=== PATIENT | male | born 1955 | race Caucasian/White ===

== ENCOUNTER 2017-02-10 13:52 | Emergency (ER) | payer OTHER ==
[~2017-02-10] VITALS: Ht 177.8 cm; Wt 55.3 kg
--- NOTE | 2017-02-10 14:05 | Emergency Room Report ---
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 Clinical Suspician of Infection? Mental Status: Sepsis Risk: Have you (or family members/close friends) recently traveled outside the [place]? If Yes, where/when: Have you had exposure to infectious disease within the past month? TB? Other? Specify: Patient had brief syncopal episode an hour ago while sitting at a bar; apparently underwent phlebotomy per his INSPECTOR GOVERNMENT PROPERTY this morning. On EMS arrival, also had near syncope with SBP in the 60's; given IVF aggressively x one liter prior to arrival, with recheck SBP in the low 120's. He has no cephalgia, no chest pain. Noted to have nonspecific ST changes on EKG per EMS. FSBS 118. Had some v/ d today. 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 ) Psychiatric/Neurological see HPI Physical Exam Vital Signs Vital Signs Date Time Temp Pulse Resp B/P Pulse O2 O2 Flow FiO2 Ox Delivery Rate 02/10 1508 92 18 118/84 97 02/10 1355 98.0 90 18 123/80 95 General Appearance normal appearance, WD/WN, no apparent distress Eye Exam - bilateral eye normal exam, bilateral eye PERRL, bilateral eye EOMI Neck normal inspection, non-tender, supple, full range of motion Respiratory Status Yes: trachea midline, chest symmetrical, non tender chest. No: respiratory distress, tender on palpation, use of accessory muscles, pain on inspiration, pain on expiration, productive cough, non productive cough. Lung Sounds bilateral: normal breath sounds, lungs clear. 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 No Results/Orders Laboratory Tests 02/10/17 1409: Sodium 129 L, Potassium 4.2, Chloride 97 L, Carbon Dioxide 23, BUN 13, Creatinine 1.0, Estimated Creat Clear 60, Estimated GFR (MDRD) 76, Glucose 107 H, Calcium 8.7, Total Bilirubin 1.0, AST 45 H, ALT 50, Alkaline Phosphatase 78, Creatine Kinase 65, CK-MB (CK-2) Rel Index 2.3, CK and CKMB Interp 1.5, Troponin I < 0.02, Total Protein 6.6, Albumin 3.7, Globulin 2.9, Albumin/Globulin Ratio 1.3, WBC 9.2, RBC 4.34 L, Hgb 14.3, Hct 43.0, MCV 98.9 H, RDW 13.2, Plt Count 224, MPV 7.1 L, Gran % 80.5 H, Gran # 7.4, Lymphocytes % 12.9, Monocytes % 5.5 , Eosinophils % 0.8, Basophils % 0.2, Lymphocytes # 1.2, Monocytes # 0.5, Eosinophils # 0.1, Basophils # 0.0, PUBS MCHC 33.3, MCH 32.9 H, Alcohols 35 Current Medication Orders Sig/Dariel Start time Last Medication Dose Route Stop Time Status Admin Folic Acid 1 MG ONCE ONE 02/10 1600 AC PO 02/10 1601 Multivitamins 1 EACH ONCE ONE 02/10 1600 AC PO 02/10 1601 Thiamine HCl 100 MG ONCE ONE 02/10 1600 AC PO 02/10 1601 Folic Acid 1 MG ONCE ONE 02/10 1445 DC PO 02/10 1446 Multivitamins 10 ML .Q6H42M 02/10 144 DC Magnesium Sulfate 2 GM IV 02/106 Thiamine HCl 100 MG Lactated Ringer's 1,000 ML Miscellaneous 1 UNIT ONCE ONE 02/10 1430 DC Medication XX 02/10 1431 Sodium Chloride 10 ML PRN PRN 02/10 1415 AC IV 02/11 140 Orders Procedure Date/time Status DIET-NOTHING BY MOUTH 02/10 D Active ECHO ADULT 02/10 1415 Active ALCOHOL 02/10 140 Complete ELECTROCARDIOGRAM REQUEST 02/[address] HEAD REQ 02/10 1403 Complete CHEST-PORTABLE 02/10 1403 Active IV SALINE LOCK 02/10 1403 Active CBC WITH AUTO DIFF 02/10 1403 Complete CARDIAC ENZYMES 02/10 1403 Complete CHEM 12 PROFILE 02/10 1403 Complete 12 LEAD EKG-BESSON (INITIAL) 02/10 UNK Active CM/EKG CM/EKG EKG rate, NSR, rhythm, no ectopy, normal QRS, non-spec. ST/Twave chgs, first degree AVB, has borderline ST changes inferiorly and laterally with EKG sent to cardiology for stat review and Dr. JAMES has evaluated it and recommends ECHO. XRAY/CT/US XRAY/CT/US XRAY chest XR interpretation by reviewed by me Xray Results normal/NAD, no infiltrates, reticular pattern; rotated CT head CT interpretation by reviewed by me (report reviewed) Time results known: 1453 CT Results normal/NAD Consult MD Physician Consult Time Called 1358 Reason Cardiology eval/care Comments ST changes noted on EKG per EMS as well as [facility] EKG; have paged cardiology train electronic technician and EKG also texted to cardiology. Departure Departure Time of Disposition 1551 Disposition DC Home or Self Care(routine) Clinical Impression Primary Impression: Syncope Qualifiers: Syncope type: vasovagal syncope Qualified Code: R55 - Syncope and collapse Secondary Impressions: Vomiting and diarrhea Condition STABLE Referrals Steffany Gomez MD (Family) Patient Instructions Orthostatic Hypotension Additional Instructions Encourage fluids, see Dr. Gomez for follow up in one to two days; recommend daily multivitamin and seizure precautions around bed. Blood pressure was low today per EMS so stand up slowly and carefully to avoid further episodes. Discharge Counseling Counseled pt/family regarding diagnosis, test results, home care, follow up needs Prescriptions Current Visit Scripts Ondansetron (Zofran 4MG Odt) 4 MG PO Q6HP PRN NAUSEA AND VOMITING #10 ODT ED Critical Care Critical Care No at [id number]
--- NOTE | 2017-02-10 14:05 | Emergency Room Report ---
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 Clinical Suspician of Infection? Mental Status: Sepsis Risk: Have you (or family members/close friends) recently traveled outside the [place]? If Yes, where/when: Have you had exposure to infectious disease within the past month? TB? Other? Specify: Patient had brief syncopal episode an hour ago while sitting at a bar; apparently underwent phlebotomy per his RECREATION PROFESSOR this morning. On EMS arrival, also had near syncope with SBP in the 60's; given IVF aggressively x one liter prior to arrival, with recheck SBP in the low 120's. He has no cephalgia, no chest pain. Noted to have nonspecific ST changes on EKG per EMS. FSBS 118. Had some v/ d today. 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 ) Psychiatric/Neurological see HPI Physical Exam Vital Signs Vital Signs Date Time Temp Pulse Resp B/P Pulse O2 O2 Flow FiO2 Ox Delivery Rate 02/10 1508 92 18 118/84 97 02/10 1355 98.0 90 18 123/80 95 General Appearance normal appearance, WD/WN, no apparent distress Eye Exam - bilateral eye normal exam, bilateral eye PERRL, bilateral eye EOMI Neck normal inspection, non-tender, supple, full range of motion Respiratory Status Yes: trachea midline, chest symmetrical, non tender chest. No: respiratory distress, tender on palpation, use of accessory muscles, pain on inspiration, pain on expiration, productive cough, non productive cough. Lung Sounds bilateral: normal breath sounds, lungs clear. Cardiovascular normal exam, regular rate/rhythm, no peripheral edema, no gallop, no JVD, no murmur, no rub, normal peripheral pulses Gastrointestinal normal bowel sounds, normal exam, non tender, soft, no organomegaly, no pulsatile mass, no guarding, no rebound Extremities non-tender, normal range of motion, normal inspection, normal capillary refill Strength 4 Upper Ext (L), 4 Upper Ext (R), 4 Lower Ext (L), 4 Lower Ext (R) Neurologic alert, pocket closer II-XII nml as tested, normal exam, no motor/sensory deficits, oriented x 3 (tremulous; clear speech) Glascow Coma Scale Glascow Coma Scale Response Value EYE response: 4 Spontaneously 4 MOTOR response: 6 OBEYS 6 VERBAL response: 5 Oriented & Converses 5 Total 15 Mental status normal mood/affect Skin intact, normal color Medical Decision Making LABS/Meds/Orders Pt receiving controlled substance in ED? No Results/Orders Laboratory Tests 02/10/17 1409: Sodium 129 L, Potassium 4.2, Chloride 97 L, Carbon Dioxide 23, BUN 13, Creatinine 1.0, Estimated Creat Clear 60, Estimated GFR (MDRD) 76, Glucose 107 H, Calcium 8.7, Total Bilirubin 1.0, AST 45 H, ALT 50, Alkaline Phosphatase 78, Creatine Kinase 65, CK-MB (CK-2) Rel Index 2.3, CK and CKMB Interp 1.5, Troponin I < 0.02, Total Protein 6.6, Albumin 3.7, Globulin 2.9, Albumin/Globulin Ratio 1.3, WBC 9.2, RBC 4.34 L, Hgb 14.3, Hct 43.0, MCV 98.9 H, RDW 13.2, Plt Count 224, MPV 7.1 L, Gran % 80.5 H, Gran # 7.4, Lymphocytes % 12.9, Monocytes % 5.5 , Eosinophils % 0.8, Basophils % 0.2, Lymphocytes # 1.2, Monocytes # 0.5, Eosinophils # 0.1, Basophils # 0.0, PUBS MCHC 33.3, MCH 32.9 H, Alcohols 35 Current Medication Orders Sig/Dariel Start time Last Medication Dose Route Stop Time Status Admin Folic Acid 1 MG ONCE ONE 02/10 1600 AC PO 02/10 1601 Multivitamins 1 EACH ONCE ONE 02/10 1600 AC PO 02/10 1601 Thiamine HCl 100 MG ONCE ONE 02/10 1600 AC PO 02/10 1601 Folic Acid 1 MG ONCE ONE 02/10 1445 DC PO 02/10 1446 Multivitamins 10 ML .Q6H42M 02/10 144 DC Magnesium Sulfate 2 GM IV 02/106 Thiamine HCl 100 MG Lactated Ringer's 1,000 ML Miscellaneous 1 UNIT ONCE ONE 02/10 1430 DC Medication XX 02/10 1431 Sodium Chloride 10 ML PRN PRN 02/10 1415 AC IV 02/11 140 Orders Procedure Date/time Status DIET-NOTHING BY MOUTH 02/10 D Active ECHO ADULT 02/10 1415 Active ALCOHOL 02/10 140 Complete ELECTROCARDIOGRAM REQUEST 02/[address] HEAD REQ 02/10 1403 Complete CHEST-PORTABLE 02/10 1403 Active IV SALINE LOCK 02/10 1403 Active CBC WITH AUTO DIFF 02/10 1403 Complete CARDIAC ENZYMES 02/10 1403 Complete CHEM 12 PROFILE 02/10 1403 Complete 12 LEAD EKG-BESSON (INITIAL) 02/10 UNK Active CM/EKG CM/EKG EKG rate, NSR, rhythm, no ectopy, normal QRS, non-spec. ST/Twave chgs, first degree AVB, has borderline ST changes inferiorly and laterally with EKG sent to cardiology for stat review and Dr. JAMES has evaluated it and recommends ECHO. XRAY/CT/US XRAY/CT/US XRAY chest XR interpretation by reviewed by me Xray Results normal/NAD, no infiltrates, reticular pattern; rotated CT head CT interpretation by reviewed by me (report reviewed) Time results known: 1453 CT Results normal/NAD Consult MD Physician Consult Time Called 1358 Reason Cardiology eval/care Comments ST changes noted on EKG per EMS as well as [facility] EKG; have paged cardiology community education coordinator and EKG also texted to cardiology. Departure Departure Time of Disposition 1551 Disposition DC Home or Self Care(routine) Clinical Impression Primary Impression: Syncope Qualifiers: Syncope type: vasovagal syncope Qualified Code: R55 - Syncope and collapse Secondary Impressions: Vomiting and diarrhea Condition STABLE Referrals Steffany Gomez MD (Family) Patient Instructions Orthostatic Hypotension Additional Instructions Encourage fluids, see Dr. Gomez for follow up in one to two days; recommend daily multivitamin and seizure precautions around bed. Blood pressure was low today per EMS so stand up slowly and carefully to avoid further episodes. Discharge Counseling Counseled pt/family regarding diagnosis, test results, home care, follow up needs Prescriptions Current Visit Scripts Ondansetron (Zofran 4MG Odt) 4 MG PO Q6HP PRN NAUSEA AND VOMITING #10 ODT ED Critical Care Critical Care No at [id number]
[2017-02-10 14:16] LABS: HEMOGLOBIN 14.3 g/dL (14.1-18.0); LYMPH # 1.2 K/mm3 (0.7-4.5); LYMPH % 12.9 % (10-50)
--- OUTSIDE RECORDS SUMMARY | 2017-02-10 14:22 | External Medical Summary Rpt | CCD ---
Demographics Preferred Language Armenian Marital Status Unknown Taoism Affiliation Unknown Race Unknown Ethnic Group Unknown Author Author [facility]OL[facility] Address Unknown Phone Immunization No patient found.
--- OUTSIDE RECORDS SUMMARY | 2017-02-10 14:22 | External Medical Summary Rpt | CCD ---
Author Author [employer] Organization [employer] Address Unknown Phone Unavailable Purpose Continuity of Care Document - through 2016
--- OUTSIDE RECORDS SUMMARY | 2017-02-10 14:22 | External Medical Summary Rpt ---
Author Author [facility]OLA Suarez, [employer] Organization [employer] Address Unknown Phone Unavailable
--- OUTSIDE RECORDS SUMMARY | 2017-02-10 14:22 | External Medical Summary Rpt | CCD ---
Demographics Preferred Language Mozambican Marital Status Unknown Adventist Affiliation Unknown Race Unknown Ethnic Group Unknown Author Author [facility]OLA Address Unknown Phone Immunization No patient found.
--- OUTSIDE RECORDS SUMMARY | 2017-02-10 14:22 | External Medical Summary Rpt | CCD ---
Author Author YOLA Address Unknown Phone [email or web address] Purpose Continuity of Care Document - through 2016
--- OUTSIDE RECORDS SUMMARY | 2017-02-10 14:22 | External Medical Summary Rpt | CCD ---
Author Author YOLA Address Unknown Phone [email or web address] Purpose Continuity of Care Document - through 2016
[2017-02-10 14:41] LABS: BUN 13 mg/dL (7-18)
--- NOTE | 2017-02-10 14:42 | RADIOLOGY REPORT PS360 ---
CT HEAD W/O CONTRAST HISTORY: NEAR SYNCOPE ORDERING PHYSICIAN: Yen Francisco MD PATIENT AGE: 61 years COMPARISON: None. FINDINGS: There is mild prominence of the ventricles and sulci consistent with volume loss. Low density changes are present in the periventricular region consistent with ischemic gliotic change from small vessel disease. No midline shift, mass effect, intracranial hemorrhage, or hydrocephalus is evident. No mastoid effusion. No sinus air-fluid level. No acute calvarial abnormality. IMPRESSION: No acute intracranial pathology
[2017-02-10 14:45] LABS: GFR (ESTIMATED) 76 ML/MIN (>60)
[2017-02-10] MEDS ORDERED: ZOFRAN ODT4 MG PO (15:54)
[2017-02-10 16:01] VITALS: BP 118/84
--- NOTE | 2017-02-10 16:05 | RADIOLOGY REPORT PS360 ---
CHEST-PORTABLE HISTORY: NEAR SYCOPE ORDERING PHYSICIAN: Yen Francisco MD PATIENT AGE: 61 years COMPARISON: None available FINDINGS: The cardiomediastinal silhouette and pulmonary vascularity are within normal limits. The lungs are clear without infiltrates, suspicious nodules, or pleural effusions. There are minimally displaced fractures involving the lateral aspect of the left ninth and eighth ribs. These are age-indeterminate. IMPRESSION: 1. Minimally displaced fractures left eighth and ninth ribs. 2. Otherwise negative chest
--- NOTE | 2017-02-10 16:38 | CONSULT NOTE ---
Standard Demographics Patient Demo Date of Consultation: 02/10/17 Referring Provider: Yen Francisco MD Reason for Consultation: Syncope, Abnormal EKG PRIMARY DIAGNOSIS: Passed out Problem list Problem list: 1. Tobacco use, 2 ppd for at least 45 yrs 2. HTN 3. HLD History of present illness: History of present illness: 61-year-old white male presented to the emergency department by EMS after syncopal episode. Patient had been to his primary care physician's office this morning to be evaluated for knee pain and had multiple tubes of blood drawn. He relates he had not eaten this morning and decided to go to a bar. He had about a half a beer when he felt severely diaphoretic and lightheaded. Patient states he does not remember the events thereafter until waking up on the floor. His charger operator in the ER states that he acted as if he was going to pass out so they assisted him to the floor. Didn't mention any chest pain patient denies any chest pain. He has chronic shortness of breath due to tobacco use and chronic obstructive pulmonary disease. No seizure activity reported. Patient did soil himself with a bowel movement. He was transported to the emergency department for further evaluation. Blood pressure by EMS was noted to be in the 60s systolic. This improved with IV fluids and route. Electrocardiogram obtained with diffuse ST segment abnormalities noted.initial troponin was normal. Cardiology consulted for evaluation and recommendations. Echocardiogram was recommended. Past Medical History: General: Hypertension Yes Past Surgical HX: Previous Surgery?N Allergies Coded Allergies: No Known Allergies (02/10/17) Current Medications: Current Medications Folic Acid 1 MG ONCE ONE PO (DC) Multivitamins 1 EACH ONCE ONE PO (DC) Thiamine HCl 100 MG ONCE ONE PO (DC) Folic Acid 1 MG ONCE ONE PO (DC) Multivitamins 10 ML .Q6H42M IV (DC) Magnesium Sulfate 2 GM Thiamine HCl 100 MG Lactated Ringer's 1,000 ML Miscellaneous Medication 1 UNIT ONCE ONE XX (DC) Sodium Chloride 10 ML PRN PRN IV (DCD) Immunization HX DT/Tetanus Unknown Family history Family HX Family Hx Insignificant No Social Hx: Smoking HX Tobacco Yes Type Cigarettes Alcohol Alcohol: Yes Hx of Drug Use Drug Use? No Review of systems: Constitutional No: no symptoms reported, see HPI. Respiratory SOB with excertion. Cardiovascular No no symptoms reported Gastrointestinal/Abdominal No no symptoms reported Genitourinary No: no symptoms reported. Musculoskeletal joint pain. Neurological Yes: see HPI. Exam: Admission Vital Signs: 1ST Vital Signs Result Date Time Pulse Ox 95 02/10 1355 B/P 123/80 02/10 1355 Temp 98.0 02/10 1355 Pulse 90 02/10 1355 Resp 18 02/10 1355 Last Vital Signs: Vital Signs Result Date Time Pulse Ox 97 02/10 1601 B/P 118/84 02/10 1601 Temp 98.0 02/10 1601 Pulse 92 02/10 1601 Resp 18 02/10 1601 Exam General appearance: alert, awake, no acute distress Neck: no carotid bruit, no JVD Cardiovascular: regular rate & rhythm, no murmur Respiratory: diminished breath sounds bilaterally with no rales or wheezing at this time. ABD: soft, no tenderness Extremities: moves all, no peripheral edema Neuro: alert, intact, no deficit, oriented Laboratory data: Laboratory Tests 02/10/17 1409: Sodium 129 L, Potassium 4.2, Chloride 97 L, Carbon Dioxide 23, BUN 13, Creatinine 1.0, Estimated Creat Clear 60, Estimated GFR (MDRD) 76, Glucose 107 H, Calcium 8.7, Total Bilirubin 1.0, AST 45 H, ALT 50, Alkaline Phosphatase 78, Creatine Kinase 65, CK-MB (CK-2) Rel Index 2.3, CK and CKMB Interp 1.5, Troponin I < 0.02, Total Protein 6.6, Albumin 3.7, Globulin 2.9, Albumin/Globulin Ratio 1.3, WBC 9.2, RBC 4.34 L, Hgb 14.3, Hct 43.0, MCV 98.9 H, RDW 13.2, Plt Count 224, MPV 7.1 L, Gran % 80.5 H, Gran # 7.4, Lymphocytes % 12.9, Monocytes % 5.5 , Eosinophils % 0.8, Basophils % 0.2, Lymphocytes # 1.2, Monocytes # 0.5, Eosinophils # 0.1, Basophils # 0.0, PUBS MCHC 33.3, MCH 32.9 H, Alcohols 35 Plan: Assessment: 1. Near syncope/syncope likely related to vasovagal effect. Echocardiogram showed hyperdynamic function with no wall motion abnormalities with only mild valvular insufficiencies. 2. CT of the head was unremarkable. 3. Chronic tobacco use 4. Abnormal electrocardiogram without echocardiographic evidence of pericardial effusion or wall motion abnormalities. 5. Hypertension/hypertensive heart disease Recommendations: Patient seen and discussed with Dr. JAMES. No further cardiac recommendations at this time. Patient stable from a cardiac standpoint for discharge. at 1630
--- NOTE | 2017-02-10 16:38 | RADIOLOGY REPORT PS360 ---
PROCEDURE: 2-D M-mode and color Doppler study INDICATIONS FOR THE TEST: Chest pain COPD Heart Murmur Tobacco SmokingX Palpitations Fatigue SyncopeX Edema HypertensionXDiabetes Mellitus Rheumatic Fever SOBXDOEXObesity Hyperlipidemia Family History HD Additional History PATIENT INFORMATION HEIGHT: 70 WEIGHT:122 GENDER: Male B/P: 2-D/M-MODE INTERPRETATION: 2-D MEASUREMENTS OBSERVED VALUES IN CMS Right Ventricular Dimension (RVDd) 1.7 Interventricular Septum (Thickness)(IVsd) 1.0 Left Ventricular Internal Dimensions(LVIDd) 2.7 Left Ventricular Posterior Wall (Thickness)(LVPWd) 1.0 Aortic Root 2.0 Aortic Cusp Separation Left Atrial Dimensions (LAD) 2D 1. Left atrium is qualitatively mildly enlarged, left ventricle is normal size, there is mild concentric left ventricular hypertrophy, there is hyperdynamic left ventricular systolic function, visually estimated ejection fraction over 65% with no obvious regional wall motion abnormality. 2. The right atrium and right ventricle are normal size and contractility. 3. The aortic valve is minimally thickened and fibrosed. 4. The mitral and tricuspid valve leaflets are grossly normal. 5. The pulmonic valve is poorly visualized. 6. No significant pericardial effusion noted DOPPLER INTERROGATION: Doppler interrogation of the aortic, mitral and tricuspid valvular presence of mild aortic, mild mitral and tricuspid regurgitation, tricuspid regurgitant jet velocity insufficient for calculation of the right ventricular systolic pressure, grade 1 diastolic dysfunction seen without tissue Doppler evidence of raised left atrial pressure. CONCLUSION: 1. Technically difficult study because of the patient's factor and poor acoustic windows 2. Mildly enlarged left atrium, normal left ventricular size, mild concentric left ventricular hypertrophy, there is hyperdynamic left ventricular systolic function, visually estimated ejection fraction over 65% with no obvious regional wall motion abnormality grade 1 diastolic dysfunction seen without tissue Doppler evidence of raised left atrial pressure. 3. Mild aortic, mild mitral and tricuspid regurgitation 4. No significant pericardial effusion noted.
== END 2017-02-10 16:04 | disposition home or self-care (01) ==
LOC: ER 13:52
PROVIDERS: Emergency Medicine
DX: R55 Syncope and collapse (principal); R11.10 Vomiting, unspecified; R19.7 Diarrhea, unspecified